=== PATIENT | female | born 1985 | race African-American/Black ===

== ENCOUNTER 2018-05-03 16:18 | Emergency (ER) | payer SELFPAY ==
[~2018-05-03] VITALS: Ht 162.6 cm; Wt 75.0 kg
[~2018-05-03 16:18] MED LIST: CIPROFLOXACN500 MG PO; DIFLUCAN150 MG PO; METRONIDAZOL0.75 % VA; ULTRAM50 M1 PO
[2018-05-03 16:28] VITALS: BP 124/81
[2018-05-03 17:24] LABS: IMMATURE GRANULOCYTES 0.2 % (0.0-5.0); MEAN CELL VOLUME 87.1 fL CALC (80.0-100.0); MEAN CORPUSCULAR HGB 28.3 pG CALC (26.0-32.0); MEAN CORPUSCULAR HGB CONC 32.5 g/L CALC (32.0-36.0); NEUT# 2.07 thou/uL (2.00-7.15); RED BLOOD COUNT 4.98 mill/uL (4.20-5.60); RED CELL DISTRI WIDTH 14.3 % (11.5-15.5)
[2018-05-03 17:26] LABS: HEMATOCRIT 43.4 % (37.0-47.0); HEMOGLOBIN 14.1 g/dl (12.0-16.0)
[2018-05-03] MEDS ORDERED: ZOFRAN ODT4 MG PO (17:35)
[2018-05-03 17:54] LABS: INFLUENZA A NONE DETECTED (NONE DETECT)
[2018-05-03 17:55] LABS: INFLUENZA B NONE DETECTED (NONE DETECT)
[2018-05-03 18:14] LABS: ALKALINE PHOSPHATASE 73 u/l (38-126); ANION GAP 19 (6-22 (CALC)); BILIRUBIN, TOTAL 0.5 mg/dL (0.0-1.4); BUN 6 mg/dL (7-17); BUN/CREATININE RATIO 9 (12-20 (CALC)); CARBON DIOXIDE 21 mmol/l (22-30); CHLORIDE 104 mmol/l (95-108); CREATININE 0.6 mg/dL (0.5-1.0); GFR > 60 ML/MIN (>=60 (CALC)); GFR FOR AFR.AMER. > 60 ML/MIN (>=60 (CALC)); SODIUM 139 mmol/l (137-146); TOTAL PROTEIN 8.4 g/dL (6.3-8.2)
[2018-05-03 18:15] LABS: ALBUMIN 4.9 g/dL (3.2-5.0); SGOT/AST 44 u/l (14-36)
== END 2018-05-03 17:49 | disposition home or self-care (01) | DRG 392 ==
LOC: ED 16:18
PROVIDERS: Emergency Medicine
DX: R11.2 Nausea with vomiting, unspecified (principal); R19.7 Diarrhea, unspecified; R05 Cough; R10.84 Generalized abdominal pain